=== PATIENT | female | born 1980 | race Two or more races ===

== ENCOUNTER 2017-06-01 06:57 | Day surgery (SDC) | payer BC ==
[2017-06-01] MEDS ORDERED: LIDOCAINE 1% PF 2 ML VIAL. ID (07:00)
[2017-06-01] MEDS ORDERED: ONDANSETRON PF 4 MG/2 ML VIAL. IV (07:00)
[2017-06-01] MEDS: IV RINGERS,LACTATED 1000ML 1,000 ML IV (07:00)
[2017-06-01] MEDS ORDERED: HYDROmorphone 2 MG/ML VIAL IV (07:00)
[2017-06-01] MEDS ORDERED: fentaNYL PF VIAL 100 MCG/2 ML VIAL IV (07:00)
[2017-06-01 07:22] LABS: NEG OBC UR NEG; POS OBC UR POS
[2017-06-01 07:23] LABS: U PREG PATIENT NEGATIVE (NEG)
[2017-06-01] MEDS ORDERED: PROPOFOL 20 ML IV (08:05)
[2017-06-01] MEDS ORDERED: DEXAMETHASONE SOD PHOS 20 MG/5 ML VIAL. (08:05)
[2017-06-01] MEDS ORDERED: ONDANSETRON PF 4 MG/2 ML VIAL. (08:05)
[2017-06-01] MEDS ORDERED: LIDOCAINE 2% PF Vial for OR 5 ML VIAL. (08:05)
[2017-06-01] MEDS ORDERED: fentaNYL PF VIAL 100 MCG/2 ML VIAL (08:06)
[2017-06-01] MEDS ORDERED: ESMOLOL 100 MG/10 ML VIAL. IV (09:04)
[2017-06-01] MEDS ORDERED: KETOROLAC 30 MG/ML INJ FOR OR. INJ (09:04)
[2017-06-01] MEDS ORDERED: SEVOFLURANE 31 TO 60 MINUTES. IH (09:04)
[2017-06-01] MEDS ORDERED: SEVOFLURANE 16 TO 30 MINUTES. IH (09:04)
[2017-06-01] MEDS ORDERED: SEVOFLURANE 61 TO 120 MINUTES. IH (09:04)
[2017-06-01] MEDS: fentaNYL PF VIAL 100 MCG/2 ML VIAL IV ×2 (09:43→10:00)
[2017-06-01] MEDS: PROCHLORPERAZINE 10 MG/2 ML VIAL. IV (09:43)
[2017-06-01] MEDS: oxyCODONE/APAP 5/325 1 TAB TABLET PO (10:01)
== END 2017-06-01 10:47 | disposition home or self-care (01) ==
LOC: SURG 06:57
DX: N92.0 Excessive and frequent menstruation with regular cycle (principal); Z87.440 Personal history of urinary (tract) infections; Z88.6 Allergy status to analgesic agent; Z91.013 Allergy to seafood; Z87.442 Personal history of urinary calculi; Z72.89 Other problems related to lifestyle
CPT/HCPCS: 58563; 81025; J0780; J1100; J1885; J2405; J2704; J3010; J3490; J7120